=== PATIENT | male | born 1975 | race Two or more races ===

== ENCOUNTER → 2019-03-13 | Outpatient (CLI) | payer OTHER | END | disposition home or self-care (01) | LOC: MAMO-SONO 08:15 → SONOGRAMA 09:10 | DX: R10.11 Right upper quadrant pain (principal) ==

== ENCOUNTER 2024-10-06 08:38 | Outpatient (CLI) | payer OTHER | END 2024-10-06 08:39 | disposition home or self-care (01) | LOC: RAD 08:38 | DX: J45.909 Unspecified asthma, uncomplicated (principal) ==